=== PATIENT | female | born 2000 | race Hispanic/Latino ===

== ENCOUNTER 2023-08-22 12:53 | Emergency (ER) | payer OTHER ==
[~2023-08-22] VITALS: Ht 160 cm; Wt 56.7 kg
[2023-08-22 13:09] VITALS: O2SAT 98
[2023-08-22 13:12] VITALS: BP 108/62; PULSE 82; RESP 18
[2023-08-22] MEDS ORDERED: IBUPROFEN 400 MG TABLET PO ONE (14:00)
[2023-08-22] MEDS ORDERED: IBUP-2076 PO (15:19)
== END 2023-08-22 15:34 | disposition home or self-care (01) ==
LOC: EDH 12:53
DX: S62.617A Displaced fracture of proximal phalanx of left little finger, initial encounter for closed fracture (principal); X58.XXXA Exposure to other specified factors, initial encounter; Y93.89 Activity, other specified; Y92.89 Other specified places as the place of occurrence of the external cause; Y99.8 Other external cause status
CPT/HCPCS: 29130; 73130